=== PATIENT | female | born 1985 | race Asian ===

== ENCOUNTER 2019-08-08 14:32 | Emergency (ER) | payer OTHER ==
--- NOTE | 2019-08-08 15:04 | UC ---
FLU HPI - HPI Summary HPI Summary: 34 yo female presents, accompanied by , with flu-like symptoms. She tells me that their daughter (7 months) was diagnosed with the flu yesterday. Today pt has had fatigue, body aches, and dry cough for the last 3-4 hours and is concerned that they have the flu. Nothing OTC for symptoms. She did get a flu shot this year. Denies fever, chills, SOB, abdominal pain, n/v. - History of Current Complaint Stated Complaint: FLU LIKE SYMPTOMS Time Seen by Provider: 08/08/19 15:04 Hx Obtained From: Patient Onset/Duration: Sudden Onset Severity Currently: None - Allergy/Home Medications Allergies/Adverse Reactions: Allergies Allergy/AdvReac Type Severity Reaction Status Date / Time erythromycin base Allergy Rash Verified 08/08/19 15:13 Home Medications: Home Medications Ibuprofen [Advil] 400 mg PO 08/08/19 [History] Oseltamivir CAP* [Tamiflu CAP*] 75 mg PO BID #10 cap 08/08/19 [Rx] PMH/Surg Hx/FS Hx/Imm Hx - Additional Past Medical History Additional PMH: None - Surgical History Surgical History: Yes Surgery Procedure, Year, and Place: c section - Family History Known Family History: Positive: None - Social History Occupation: Employed Full-time Lives: With Family Alcohol Use: Weekly Substance Use Type: None Smoking Status (MU): Never Smoked Tobacco Review of Systems All Other Systems Reviewed And Are Negative: No Constitutional: Positive: Fatigue, Other - Body aches Skin: Positive: Negative Eyes: Positive: Negative ENT: Positive: Negative Respiratory: Positive: Cough Cardiovascular: Positive: Negative Gastrointestinal: Positive: Negative Neurological/Mental Status: Positive: Negative Psychological: Positive: Negative Physical Exam - Summary Physical Exam Summary: GENERAL: NAD. WDWN. No pain distress. SKIN: No rashes, sores, lesions, or open wounds. HEENT: Head: AT/NC Eyes: EOM intact. Conjunctiva clear without inflammation or discharge. Ears: Hearing grossly normal. TMs intact, no bulging, erythema, or edema. Nose: Nasal mucosa pink and moist. NTTP maxillary and frontal sinus. Throat: Posterior oropharynx without exudates, erythema, or tonsillar enlargement. Uvula midline. NECK: Supple. Nontender. No lymphadenopathy. CHEST: CTAB. No r/r/w. No accessory muscle use. Breathing comfortably and in no distress. CV: RRR. Pulses intact. Cap refill <2seconds NEURO: Alert. PSYCH: Age appropriate behavior. Triage Information Reviewed: Yes Vital Signs: Vital Signs: Temp Pulse Resp BP Pulse Ox 99.4 F 69 16 110/69 98 08/08/19 15:05 08/08/19 15:05 08/08/19 15:05 08/08/19 15:05 08/08/19 15:05 Vital Signs Reviewed: Yes Flu Course/Dx - Course Course Of Treatment: POC flu negative. Given exposure and symptoms - discussed supportive care vs tamiflu with pt and she elects to try tamiflu. - Differential Dx/Diagnosis Provider Diagnosis: Flu-like symptoms Discharge ED - Sign-Out/Discharge Documenting (check all that apply): Patient Departure All imaging exams completed and their final reports reviewed: No Studies - Discharge Plan Condition: Stable Disposition: HOME Prescriptions: Oseltamivir CAP* [Tamiflu CAP*] 75 mg PO BID #10 cap Patient Education Materials: Influenza (ED) Referrals: No Primary Care Phys,NOPCP [Primary Care Provider] - Additional Instructions: YOUR FLU TEST WAS NEGATIVE TODAY, BUT YOU HAVE BEEN EXPOSED AND ARE HAVING SYMPTOMS - THUS MAY START TAMIFLU IF YOU WISH -- Tamiflu will not impact your breast milk significance. Pseudoephedrine has been approved by the [place] [employer] (AAP). However, it can potentially decrease your milk supply or cause baby to become irritable. (Often found in Sudafed, Theraflu, Claritin-D and more.) Acetaminophen, aka Tylenol, has been approved by the AAP, and most experts say its safe. Guaifenesin has not been tested on moms, but its sometimes given to infants directly. (Often found in Robitussin, Mucinex and more.) Dextromethorphan has been studied in women and is considered safe. (Often found in Diane [place] Plus, Tylenol Cough & Cold, Vicks DayQuil and NyQuil and more.) - Billing Disposition and Condition Condition: STABLE Disposition: Home
[2019-08-08 15:12] VITALS: BP 110/69
[2019-08-08 16:02] LABS: Influenza A Molecular Negative (Negative); Influenza B Molecular Negative (Negative)
== END 2019-08-08 16:06 | disposition home or self-care (01) ==
LOC: UCEAST 14:32
DX: R53.83 Other fatigue (principal); R05 Cough; Z88.1 Allergy status to other antibiotic agents
CPT/HCPCS: 99212; G0463

== ENCOUNTER 2021-02-15 23:22 | Inpatient (IN) ==
[2021-02-16 00:33] LABS: ABS Basophils 0.1 10^3/ul (0-0.2); ABS Eosinophils 0.1 10^3/ul (0-0.6); ABS Lymphocytes 1.5 10^3/ul (1.0-4.8); ABS Monocytes 1.5 10^3/ul (0-0.8); ABS Neutrophils 13.3 10^3/ul (1.5-7.7); Eosinophil % 0.6 %; Hematocrit 40 % (35-47); Hemoglobin 13.8 g/dL (12.0-16.0); Mean Corpuscular HGB Conc 34 g/dL (31-36); Mean Corpuscular Hemoglobin 32 pg (27-31); Mean Corpuscular Volume 92 fL (80-97); Mean Platelet Volume 9.3 fL (7.4-10.4); Platelet Count 262 10^3/uL (150-450); Red Blood Count 4.37 10^6 /uL (3.70-4.87); Red Cell Distribution Width 13 % (10-15); White Blood Count 16.5 10^3/uL (3.5-10.8)
[2021-02-16 00:48] LABS: Rapid COVID-19 Molecular Undetected (Undetected)
[2021-02-16 00:50] LABS: Urine Benzodiazepine Screen None Detected (None Detect); Urine Cannabinoids Screen None Detected (None Detect); Urine Opiates Screen None Detected (None Detect)
[2021-02-16 00:57] LABS: Urine Appearance Cloudy; Urine Bilirubin Negative (Negative); Urine Blood 1+ (Negative); Urine Color Yellow; Urine Glucose 2+(150 mg/dL) (Negative); Urine Ketones Negative (Negative); Urine Nitrite Negative (Negative); Urine Protein Negative (Negative); Urine Specific Gravity 1.016 (1.002-1.030); Urine Urobilinogen Negative (Negative)
[2021-02-16 01:00] LABS: Urine Bacteria Absent (Absent); Urine Red Blood Cell Trace(0-2/hpf) (Absent); Urine Squamous Epithelial Cell Present (Absent); Urine White Blood Cell Absent (Absent)
[2021-02-16] MEDS ORDERED: OBEPIDURAL 250 ML EPIDURAL ONE (02:52)
[2021-02-16] MEDS ORDERED: Lactated Ringers 1000 ml BAG 1,000 ML IV ONE (03:27)
[2021-02-16] MEDS ORDERED: Phenylephrine 40 mcg/mL 10mL (400mcg) SYRINGE IV PUSH PRN (03:27)
[2021-02-16] MEDS ORDERED: EPHEDrine (Pressors) 50 MG/ML VIAL IV PUSH PRN (03:27)
[2021-02-16] MEDS ORDERED: Sodium Citrate/Citric Acid LIQ 15 ML UDC PO PRN (03:27)
[2021-02-16] MEDS ORDERED: Lactated Ringers 1000 ml BAG 500 ML IV PRN (03:27)
[2021-02-16] MEDS ORDERED: OBEPIDURAL 250 ML EPIDURAL SCH (04:00)
[2021-02-16] MEDS ORDERED: Lactated Ringers 1000 ml BAG 1,000 ML IV SCH ×2 (04:00→16:00)
[2021-02-16] MEDS ORDERED: ceFOXitin 2 GM IVPREMIX 2 GM/50 ML BAG IVPB ONE (12:42)
[2021-02-16] MEDS ORDERED: Lidocaine 2% w/ EPI 1:200,000 MPF 20 ML SDV VIAL ONE ×2 (12:59→13:50)
[2021-02-16] MEDS ORDERED: Oxytocin 10 UNITS/ML 1 ML VIAL ONE (12:59)
[2021-02-16] MEDS ORDERED: Ondansetron 4 mg VIAL 2 MG/ML 2 ml VIAL ONE (14:08)
[2021-02-16] MEDS ORDERED: Dexamethasone IV 4 MG/ML VIAL 1 ml VIAL ONE (14:08)
[2021-02-16] MEDS ORDERED: EPHEDrine (Pressors) 50 MG/ML VIAL ONE (14:19)
[2021-02-16] MEDS ORDERED: Morphine PF AMP (0.5MG/ML) 5 MG/10 ML AMP ONE (14:29)
[2021-02-16] MEDS ORDERED: fentaNYL 100 mcg/2 ml 50 MCG/ML VIAL IV PRN (14:39)
[2021-02-16] MEDS ORDERED: Naloxone 0.4 mg VIAL 0.4 mg/ml 1 ml VIAL IV PRN ×2 (14:39→14:40)
[2021-02-16] MEDS ORDERED: Scopolamine PATCH Remove NOTE PATCH OFF PRN (14:40)
[2021-02-16] MEDS ORDERED: Ondansetron 4 mg VIAL 2 MG/ML 2 ml VIAL IV PRN (14:40)
[2021-02-16] MEDS ORDERED: Witch Hazel PAD JAR TOPICAL PRN (15:15)
[2021-02-16] MEDS ORDERED: Glycerin ADULT 2.4 gm SUPP PR PRN (15:15)
[2021-02-16] MEDS ORDERED: Dibucaine 1% OINT 28.35 GM TUBE PR PRN (15:15)
[2021-02-16] MEDS ORDERED: Oxytocin in LR 20 UNITS/1,000 ML BAG IVPB SCH (16:00)
[2021-02-16] MEDS ORDERED: Metoclopramide 5 MG/ML VIAL (10 mg) IV PRN (21:30)
[2021-02-17] MEDS ORDERED: diPHENhydraMINE IV 50 MG/ML 1 ml VIAL (BENADRYL) IV ONE (01:10)
[2021-02-17 06:43] LABS: ABS Eosinophils 0.1 10^3/ul (0-0.6); ABS Lymphocytes 1.7 10^3/ul (1.0-4.8); ABS Monocytes 1.4 10^3/ul (0-0.8); ABS Neutrophils 13.9 10^3/ul (1.5-7.7); Eosinophil % 0.4 %; Hematocrit 32 % (35-47); Hemoglobin 11.1 g/dL (12.0-16.0); Mean Corpuscular HGB Conc 35 g/dL (31-36); Mean Corpuscular Hemoglobin 32 pg (27-31); Mean Corpuscular Volume 91 fL (80-97); Mean Platelet Volume 8.6 fL (7.4-10.4); Platelet Count 197 10^3/uL (150-450); Red Blood Count 3.49 10^6 /uL (3.70-4.87); Red Cell Distribution Width 13 % (10-15); White Blood Count 17.2 10^3/uL (3.5-10.8)
[2021-02-19 08:38] VITALS: BP 118/74
== END 2021-02-19 12:38 | disposition home or self-care (01) | DRG 788 ==
LOC: MCHOBOUT 23:22 → MCHOB 23:59
PROVIDERS: ADMIT Obstetrics & Gynecology; ATTEND Obstetrics & Gynecology